=== PATIENT | female | born 1990 | race Caucasian/White ===

== ENCOUNTER → 2024-03-01 09:50 | Outpatient (REF) | payer OTHER, SELFPAY | LOC: WDC 09:50 | PROVIDERS: ATTENDING PHYSICIAN Physician Assistant | DX: N63.20 Unspecified lump in the left breast, unspecified quadrant (principal); N63.23 Unspecified lump in the left breast, lower outer quadrant | CPT/HCPCS: 76642; 77062; 77066 ==